=== PATIENT | male | born 1980 | race Two or more races ===

== ENCOUNTER 2021-02-02 20:18 | Emergency (ER) | payer MEDICAID ==
[2021-02-02] MEDS ORDERED: Sodium Chloride 0.9% 10 ML Syringe FLUSH PRN (20:38)
[2021-02-02] MEDS ORDERED: LORazepam 2 MG/ML SDV IVPUSH ONE ×2 (20:52→22:37)
--- NOTE | 2021-02-02 20:52 | EDM.PDOC ---
ED HPI GENERAL MEDICAL PROBLEM - General Chief Complaint: Chest Pain Stated Complaint: [facility] Time Seen by Provider: 02/02/21 20:23 Source of Information: Reports: Patient History Limitations: Reports: No Limitations - History of Present Illness INITIAL COMMENTS - FREE TEXT/NARRATIVE: 39-year-old male presents emergency department via [facility] with complaints of chest pain. Patient states he was sitting in his home watching TV when he developed stabbing pain to his left chest going into his shoulder blade. Patient states he did become diaphoretic and short of breath at that time but denied nausea. He states his left hand went numb as well. O2 saturations are 97% on room air. Of note the patient does have a history of anxiety. Patient recently moved here about a week ago from [facility]. However he states just prior to moving here he had similar chest pain and he underwent a stress test however he states that they told him this was normal and no abnormalities were seen. Patient states that he does have a history of anxiety for which he takes Latuda and trazodone. He states he does smoke half pack a day x10 years. He smokes marijuana about once a month last smoking this morning. Patient states he does drink 3 times a week a pint of alcohol however then he states that a pint only last him 3 days. Patient states he usually drinks 2 cups of coffee daily. Patient denies any other significant medical history. Onset: Today, Sudden Onset Date: 02/02/21 Left Chest Pain Score (Numeric/FACES): 8 - Related Data Allergies Allergy/AdvReac Type Severity Reaction Status Date / Time No Known Allergies Allergy Verified 02/02/21 20:22 Home Meds: Home Meds Lurasidone [Latuda] 20 mg PO DAILY 02/02/21 [History] traZODone HCl [Trazodone HCl] 300 mg PO DAILY 02/02/21 [History] Past Medical History HEENT History: Reports: Impaired Vision Other HEENT History: Wears glasses Psychiatric History: Reports: Anxiety Social & Family History - Tobacco Use Tobacco Use Status *Q: Current Every Day Tobacco User Years of Tobacco use: 20 Packs/Tins Daily: 0.5 - Alcohol Use Days Per Week of Alcohol Use: 3 Number of Drinks Per Day: 3 Total Drinks Per Week: 9 - Recreational Drug Use Recreational Drug Use: Yes Drug Use in Last 12 Months: Yes Recreational Drug Type: Reports: Marijuana/Hashish Recreational Drug Use Frequency: Monthly ED ROS GENERAL - Review of Systems Review Of Systems: See Below Constitutional: Reports: Diaphoresis. Denies: Fever, Chills HEENT: Reports: Glasses Respiratory: Reports: Shortness of Breath. Denies: Cough, Sputum Cardiovascular: Reports: Chest Pain, Lightheadedness. Denies: Palpitations, Syncope Endocrine: Reports: No Symptoms GI/Abdominal: Reports: No Symptoms : Reports: No Symptoms Musculoskeletal: Reports: No Symptoms Skin: Reports: No Symptoms Neurological: Reports: Numbness (right hand) Psychiatric: Reports: No Symptoms Hematologic/Lymphatic: Reports: No Symptoms Immunologic: Reports: No Symptoms ED EXAM, GENERAL - Physical Exam Exam: See Below Exam Limited By: No Limitations General Appearance: Alert, WD/WN, Anxious Eye Exam: Bilateral Eye: PERRL Ears: Normal External Exam, Hearing Grossly Normal Nose: Normal Inspection Throat/Mouth: Normal Inspection, Normal Lips, Normal Voice, No Airway Compromise Head: Atraumatic, Normocephalic Neck: Normal Inspection, Supple, Non-Tender, Full Range of Motion Respiratory/Chest: No Respiratory Distress, Lungs Clear, Normal Breath Sounds, No Accessory Muscle Use Cardiovascular: Normal Peripheral Pulses, No Edema, No Murmur, Tachycardia Peripheral Pulses: 2+: Radial (L), Radial (R) GI/Abdominal: Normal Bowel Sounds, Soft, Non-Tender, No Distention (Male) Exam: Deferred Rectal (Males) Exam: Deferred Back Exam: Normal Inspection, Full Range of Motion Extremities: Normal Inspection, Normal Range of Motion, Non-Tender, No Pedal Edema, Normal Capillary Refill Neurological: Alert, Oriented, Normal Cognition Psychiatric: Anxious Skin Exam: Warm, Intact, Normal Color, No Rash, Diaphoretic Lymphatic: No Adenopathy #1 Interpretation EKG Date: 02/02/21 Time: 20:28 Rhythm: NSR Rate (Beats/Min): 120 P-Wave: Present QRS: Normal ST-T: Normal QT: Normal Comparison: NA - No Prior EKG EKG Interpretation Comments: Per Dr. Moulton interpretation: sinus tachycardia; LESVIA; no AVB; no ischemic changes; late transition; no LAD/RAD; no LVH/RVH; no IVCDs; QTc wnl #2 Interpretation EKG Date: 02/03/21 Time: 08:58 Rhythm: NSR Rate (Beats/Min): 105 P-Wave: Present QRS: Normal ST-T: Normal QT: Normal EKG Interpretation Comments: Per Dr. Alvarado interpretation: Sinus tach rate 105; very mild ST elevation in V2 and V3; probable normal early repolarization. Course - Vital Signs Text/Narrative:: 39-year-old male with a history of chest pain that started just prior to arrival. Patient states he was sitting and watching TV when he developed stabbing pain to his left chest that radiated through his left shoulder blade. Patient states that he developed shortness of breath and diaphoresis on the onset of this pain however denies any nausea or vomiting. Denies any recent fever, chills, or cough. States he had right hand numbness at the onset of the chest pain as well and his right thumb is still numb. States recently had a stress test in [facility] due to similar chest pain that he had experienced and was told that this was unremarkable and there were no abnormalities seen. I have ordered a full cardiac work-up, chest x-ray and an EKG on this patient. Last Recorded V/S: Last Vital Signs Temp 97.9 F 02/03/21 08:12 Pulse 124 H 02/03/21 08:12 Resp 18 02/03/21 08:12 BP 166/105 H 02/03/21 08:12 Pulse Ox 98 02/03/21 08:12 - Orders/Labs/Meds Orders: Active Orders 24 hr Category Date Time Status EKG 12 Lead [EKG Documentation Completion] [RC] STAT Care 02/02/21 20:25 Active EKG 12 Lead [EKG Documentation Completion] [RC] STAT Care 02/03/21 08:53 Active Consult to Case Management/Tugboat Captain [CONS] Cons 02/03/21 07:53 Active Routine Sodium Chloride 0.9% [Saline Flush] Med 02/02/21 20:38 Active 10 ml FLUSH ASDIRECTED PRN Saline Lock Insert [OM.PC] Stat Oth 02/02/21 20:38 Ordered Suicide Precautions [OM.PC] Q1H Oth 02/03/21 07:00 Ordered Suicide Precautions [OM.PC] Q1H Oth 02/03/21 08:00 Ordered Suicide Precautions [OM.PC] Q1H Oth 02/03/21 09:00 Ordered Suicide Precautions [OM.PC] Q1H Oth 02/03/21 10:00 Ordered Suicide Precautions [OM.PC] Q1H Oth 02/03/21 11:00 Ordered Suicide Precautions [OM.PC] Q1H Oth 02/03/21 12:00 Ordered Suicide Precautions [OM.PC] Q1H Oth 02/03/21 13:00 Ordered Suicide Precautions [OM.PC] Q1H Oth 02/03/21 14:00 Ordered Suicide Precautions [OM.PC] Q1H Oth 02/03/21 15:00 Ordered Suicide Precautions [OM.PC] Q1H Oth 02/03/21 16:00 Ordered Suicide Precautions [OM.PC] Q1H Oth 02/03/21 17:00 Ordered Suicide Precautions [OM.PC] Q1H Oth 02/03/21 18:00 Ordered Suicide Precautions [OM.PC] Q1H Oth 02/03/21 19:00 Ordered Suicide Precautions [OM.PC] Q1H Oth 02/03/21 20:00 Ordered Suicide Precautions [OM.PC] Q1H Oth 02/03/21 21:00 Ordered Suicide Precautions [OM.PC] Q1H Oth 02/03/21 22:00 Ordered Suicide Precautions [OM.PC] Q1H Oth 02/03/21 23:00 Ordered Medication Orders Sodium Chloride (Saline Flush) 10 ml FLUSH ASDIRECTED PRN PRN Reason: Keep Vein Open Last Admin: 02/02/21 20:40 Dose: 10 ml Documented by: [email or web address] Labs: Laboratory Tests 02/02/21 02/02/21 02/02/21 Range/Units 20:34 20:34 20:34 WBC 7.82 (4.23-9.07) K/mm3 RBC 5.34 (4.63-6.08) M/mm3 Hgb 15.2 (13.7-17.5) gm/dl Hct 46.1 (40.1-51.0) % MCV 86.3 (79.0-92.2) fl MCH 28.5 (25.7-32.2) pg MCHC 33.0 (32.2-35.5) g/dl RDW Std Deviation 47.6 H (35.1-43.9) fL Plt Count 312 (163-337) K/mm3 MPV 9.3 L (9.4-12.3) fl Neut % (Auto) 78.1 H (34.0-67.9) % Lymph % (Auto) 13.3 L (21.8-53.1) % [place] % (Auto) 8.4 (5.3-12.2) % Eos % (Auto) 0 L (0.8-7.0) Baso % (Auto) 0.1 (0.1-1.2) % Neut # (Auto) 6.10 H (1.78-5.38) K/mm3 Lymph # (Auto) 1.04 L (1.32-3.57) K/mm3 [place] # (Auto) 0.66 (0.30-0.82) K/mm3 Eos # (Auto) 0.00 L (0.04-0.54) K/mm3 Baso # (Auto) 0.01 (0.01-0.08) K/mm3 Sodium 141 (136-145) mEq/L Potassium 4.1 (3.5-5.1) mEq/L Chloride 102 (98-107) mEq/L Carbon Dioxide 24 (21-32) mEq/L Anion Gap 19.1 H (5-15) BUN 18 (7-18) mg/dL Creatinine 1.5 H (0.7-1.3) mg/dL Est Cr Clr Drug Dosing 73.24 mL/min Estimated GFR (MDRD) 52 (>60) mL/min BUN/Creatinine Ratio 12.0 L (14-18) Glucose 90 (74-106) mg/dL Calcium 9.3 (8.5-10.1) mg/dL Magnesium 2.0 (1.8-2.4) mg/dl Total Bilirubin 0.5 (0.2-1.0) mg/dL AST 42 H (15-37) U/L ALT 49 (16-63) U/L Alkaline Phosphatase 87 (46-116) U/L Creatine Kinase (39-308) U/L Troponin I 0.051 (0.00-0.056) ng/mL C-Reactive Protein 2.1 H* (<1.0) mg/dL Total Protein 8.7 H (6.4-8.2) g/dl Albumin 4.3 (3.4-5.0) g/dl Globulin 4.4 gm/dL Albumin/Globulin Ratio 1.0 (1-2) TSH 3rd Generation 0.717 (0.358-3.74) uIU/mL Salicylates (2.8-20) mg/dL Urine Opiates Screen (DSTGQG=850) Ur Buprenorphine Scrn (CUTOFF=10) Ur Oxycodone Screen (ZGY3OX=172) Urine Methadone Screen (PGV9LU=017) Ur Propoxyphene Screen (PMURYS=882) Acetaminophen 0 L (10-30) ug/mL Ur Barbiturates Screen (MCGKXH=157) Ur Tricyclics Screen (IHBFRN=698) Ur Phencyclidine Scrn (CUTOFF=25) Ur Amphetamine Screen (QYBBAN=506) U Methamphetamines Scrn (YPHYKG=371) U Benzodiazepines Scrn (VALGMN=204) U Cocaine Metab Screen (XCKXRI=388) U Marijuana (THC) Screen (CUTOFF=50) Ethyl Alcohol 0.08 (0.00) gm% SARS-CoV-2 RNA (SEEMA) (NEGATIVE) 02/02/21 02/02/21 02/02/21 Range/Units 20:34 20:34 22:03 WBC (4.23-9.07) K/mm3 RBC (4.63-6.08) M/mm3 Hgb (13.7-17.5) gm/dl Hct (40.1-51.0) % MCV (79.0-92.2) fl MCH (25.7-32.2) pg MCHC (32.2-35.5) g/dl RDW Std Deviation (35.1-43.9) fL Plt Count (163-337) K/mm3 MPV (9.4-12.3) fl Neut % (Auto) (34.0-67.9) % Lymph % (Auto) (21.8-53.1) % [place] % (Auto) (5.3-12.2) % Eos % (Auto) (0.8-7.0) Baso % (Auto) (0.1-1.2) % Neut # (Auto) (1.78-5.38) K/mm3 Lymph # (Auto) (1.32-3.57) K/mm3 [place] # (Auto) (0.30-0.82) K/mm3 Eos # (Auto) (0.04-0.54) K/mm3 Baso # (Auto) (0.01-0.08) K/mm3 Sodium (136-145) mEq/L Potassium (3.5-5.1) mEq/L Chloride (98-107) mEq/L Carbon Dioxide (21-32) mEq/L Anion Gap (5-15) BUN (7-18) mg/dL Creatinine (0.7-1.3) mg/dL Est Cr Clr Drug Dosing mL/min Estimated GFR (MDRD) (>60) mL/min BUN/Creatinine Ratio (14-18) Glucose (74-106) mg/dL Calcium (8.5-10.1) mg/dL Magnesium (1.8-2.4) mg/dl Total Bilirubin (0.2-1.0) mg/dL AST (15-37) U/L ALT (16-63) U/L Alkaline Phosphatase (46-116) U/L Creatine Kinase 501 H (39-308) U/L Troponin I (0.00-0.056) ng/mL C-Reactive Protein (<1.0) mg/dL Total Protein (6.4-8.2) g/dl Albumin (3.4-5.0) g/dl Globulin gm/dL Albumin/Globulin Ratio (1-2) TSH 3rd Generation (0.358-3.74) uIU/mL Salicylates 1.2 L (2.8-20) mg/dL Urine Opiates Screen Negative (ZAZRLU=605) Ur Buprenorphine Scrn Negative (CUTOFF=10) Ur Oxycodone Screen Negative (HHU2VH=811) Urine Methadone Screen Negative (UJB0WY=666) Ur Propoxyphene Screen Negative (OSBMGZ=914) Acetaminophen (10-30) ug/mL Ur Barbiturates Screen Negative (KUXXYV=373) Ur Tricyclics Screen Negative (ECZNLN=300) Ur Phencyclidine Scrn Negative (CUTOFF=25) Ur Amphetamine Screen Presumptive positive H (GKEUXZ=118) U Methamphetamines Scrn Presumptive positive H (PCWBAL=011) U Benzodiazepines Scrn Negative (MAXKJO=589) U Cocaine Metab Screen Negative (ODTLDD=727) U Marijuana (THC) Screen Presumptive positive H (CUTOFF=50) Ethyl Alcohol (0.00) gm% SARS-CoV-2 RNA (SEEMA) (NEGATIVE) 02/03/21 02/03/21 Range/Units 08:15 08:30 WBC (4.23-9.07) K/mm3 RBC (4.63-6.08) M/mm3 Hgb (13.7-17.5) gm/dl Hct (40.1-51.0) % MCV (79.0-92.2) fl MCH (25.7-32.2) pg MCHC (32.2-35.5) g/dl RDW Std Deviation (35.1-43.9) fL Plt Count (163-337) K/mm3 MPV (9.4-12.3) fl Neut % (Auto) (34.0-67.9) % Lymph % (Auto) (21.8-53.1) % [place] % (Auto) (5.3-12.2) % Eos % (Auto) (0.8-7.0) Baso % (Auto) (0.1-1.2) % Neut # (Auto) (1.78-5.38) K/mm3 Lymph # (Auto) (1.32-3.57) K/mm3 [place] # (Auto) (0.30-0.82) K/mm3 Eos # (Auto) (0.04-0.54) K/mm3 Baso # (Auto) (0.01-0.08) K/mm3 Sodium (136-145) mEq/L Potassium (3.5-5.1) mEq/L Chloride (98-107) mEq/L Carbon Dioxide (21-32) mEq/L Anion Gap (5-15) BUN (7-18) mg/dL Creatinine (0.7-1.3) mg/dL Est Cr Clr Drug Dosing mL/min Estimated GFR (MDRD) (>60) mL/min BUN/Creatinine Ratio (14-18) Glucose (74-106) mg/dL Calcium (8.5-10.1) mg/dL Magnesium (1.8-2.4) mg/dl Total Bilirubin (0.2-1.0) mg/dL AST (15-37) U/L ALT (16-63) U/L Alkaline Phosphatase (46-116) U/L Creatine Kinase (39-308) U/L Troponin I 0.062 H* (0.00-0.056) ng/mL C-Reactive Protein (<1.0) mg/dL Total Protein (6.4-8.2) g/dl Albumin (3.4-5.0) g/dl Globulin gm/dL Albumin/Globulin Ratio (1-2) TSH 3rd Generation (0.358-3.74) uIU/mL Salicylates (2.8-20) mg/dL Urine Opiates Screen (MJQOVP=532) Ur Buprenorphine Scrn (CUTOFF=10) Ur Oxycodone Screen (IAS2LG=359) Urine Methadone Screen (YNB5IM=246) Ur Propoxyphene Screen (GZADBV=340) Acetaminophen (10-30) ug/mL Ur Barbiturates Screen (AZWMUV=784) Ur Tricyclics Screen (NNITBD=889) Ur Phencyclidine Scrn (CUTOFF=25) Ur Amphetamine Screen (HHSVHI=421) U Methamphetamines Scrn (FCRACO=207) U Benzodiazepines Scrn (HXJDQV=688) U Cocaine Metab Screen (EQPBQT=814) U Marijuana (THC) Screen (CUTOFF=50) Ethyl Alcohol (0.00) gm% SARS-CoV-2 RNA (SEEMA) Negative (NEGATIVE) Meds: Medications Generic Name Dose Route Start Last Admin Trade Name Freq PRN Reason Stop Dose Admin Sodium Chloride 10 ml 02/02/21 20:38 02/02/21 20:40 Saline Flush FLUSH 10 ml ASDIRECTED PRN Administration Keep Vein Open Discontinued Medications Generic Name Dose Route Start Last Admin Trade Name Freq PRN Reason Stop Dose Admin Lorazepam 0.5 mg 02/02/21 20:52 02/02/21 20:57 Ativan IVPUSH 02/02/21 20:53 0.5 mg ONETIME ONE Administration Lorazepam 1 mg 02/02/21 22:37 02/02/21 22:49 Ativan IVPUSH 02/02/21 22:38 1 mg ONETIME ONE Administration Ondansetron HCl 4 mg 02/03/21 01:29 02/03/21 01:33 Zofran Odt PO 02/03/21 01:30 4 mg ONETIME ONE Administration - Re-Assessments/Exams Free Text/Narrative Re-Assessment/Exam: 02/02/21 21:01 Patient is tachycardic in the 130s to 140s however he is pacing in the room as he states he feels very claustrophobic. I have ordered for the patient to receive a dose of Ativan. 02/02/21 21:21 Nothing acute is appreciated on portable view of the chest. 02/02/21 21:54 Patient has remained tachycardic in the 130s and 140s, and he is quite anxious and diaphoretic. Patient states he cannot sit still in the room despite receiving a dose of Ativan. The patient does admit now to taking an X pill prior to arrival. He states that he does not know what is in it and he just took it to get high. He has symptoms similar to ecstasy intake. He is tachycardic, hypertensive and diaphoretic. 02/02/21 21:59 I have ordered acetaminophen and salicylate levels, and a ck. 02/02/21 22:08 CBC is essentially unremarkable, chemistry reveals a sodium of 141, potassium 4.1, anion gap 19.1, BUN 18, creatinine 1.5, glucose is 90, magnesium 2.0, AST 42, ALT 49, troponin 0 0.051, C-reactive protein 2.1, TSH 0.717 awaiting results of additional labs 02/02/21 22:31 Toxicology reveals acetaminophen 0, urine amphetamine screen presumptive positive, urine methamphetamine screen presumptive positive, urine marijuana screen presumptive positive, ethyl alcohol 0.08. 03 22:42 Pt is less tachycardic. Rate 120's to 130's. BP 180/101. Will order another dose of Ativan IV. Pt reports to me that he is hallucinating and seeing people that aren't there. He states that he is schitzophrenic. 02/02/21 22:45 Salicylate level is 1.2. Creatinine kinase is 501 02/02/21 23:31 Pt will likely need to be monitored throughout the night, however there are no hospital beds available. Pt will remain in the ED for the remainder of the evening. I will hand over care to Dr. Moulton. 02/03/21 09:08 I have returned on shift and will take over care of the patient. It is revealed that the patient is having auditory and visual hallucinations. He is also stating that he is suicidal. We have called our hospital social service technician to assist with finding placement for the patient. Repeat troponin is 0.62, however after discussing this case with Dr. Alvarado, we do not feel this is a true cardiac event. It is likely due to sustained tachycardia and hypertension as a result of drug ingestion. 02/03/21 09:[address] Wong regarding transferring this patient to inpatient psych. She states that per his records she was able to discover he is actually a [place] resident so it is unlikely that we can commit this patient. She states that he has had almost identical complaints in the past. She request that we have him screened by the human services [place] and then call her back so that she can reevaluate. I spoke to our hospital social service technician, Kesha, and she is going to arrange for [facility] to come up and evaluate the patient. 02/03/21 11:39 [facility] was here to assess the patient. They have contacted [facility] in [place] and [facility] has agreed to accept the patient in transfer. We will arrange for transportation for this patient. Departure - Departure Time of Disposition: 12:00 Disposition: DC/Tfer to Psych Hosp/Unit 65 Reason for Transfer *Q: Other Condition: Good Clinical Impression: Suicide ideation Referrals: PCP,None [Primary Care Provider] - Forms: ED Department Discharge Sepsis Event Note (ED) - Evaluation Sepsis Screening Result: No Definite Risk - Focused Exam Vital Signs: Vital Signs Temp Pulse Resp BP Pulse Ox 02/03/21 08:12 97.9 F 124 H 18 166/105 H 98 - My Orders Last 24 Hours: My Active Orders 02/02/21 20:25 EKG 12 Lead [EKG Documentation Completion] [RC] STAT 02/02/21 20:38 Sodium Chloride 0.9% [Saline Flush] 10 ml FLUSH ASDIRECTED PRN Saline Lock Insert [OM.PC] Stat 02/03/21 07:00 Suicide Precautions [OM.PC] Q1H 02/03/21 07:53 Consult to Case Management/Tugboat Captain [CONS] Routine 02/03/21 08:00 Suicide Precautions [OM.PC] Q1H 02/03/21 09:00 Suicide Precautions [OM.PC] Q1H 02/03/21 10:00 Suicide Precautions [OM.PC] Q1H 02/03/21 11:00 Suicide Precautions [OM.PC] Q1 02/03/21 12:00 Suicide Precautions [OM.PC] Q1 02/03/21 13:00 Suicide Precautions [OM.PC] Q1 02/03/21 14:00 Suicide Precautions [OM.PC] Q1 02/03/21 15:00 Suicide Precautions [OM.PC] Q1 02/03/21 16:00 Suicide Precautions [OM.PC] Q1 02/03/21 17:00 Suicide Precautions [OM.PC] Q1 02/03/21 18:00 Suicide Precautions [OM.PC] Q1 02/03/21 19:00 Suicide Precautions [OM.PC] Q1 02/03/21 20:00 Suicide Precautions [OM.PC] Q1 02/03/21 21:00 Suicide Precautions [OM.PC] Q1 02/03/21 22:00 Suicide Precautions [OM.PC] Q1 02/03/21 23:00 Suicide Precautions [OM.PC] Q1 - Assessment/Plan Last 24 Hours: My Active Orders 02/02/21 20:25 EKG 12 Lead [EKG Documentation Completion] [RC] STAT 02/02/21 20:38 Sodium Chloride 0.9% [Saline Flush] 10 ml FLUSH ASDIRECTED PRN Saline Lock Insert [OM.PC] Stat 02/03/21 07:00 Suicide Precautions [OM.PC] Q1 02/03/21 07:53 Consult to Case Management/Tugboat Captain [CONS] Routine 02/03/21 08:00 Suicide Precautions [OM.PC] Q1 02/03/21 09:00 Suicide Precautions [OM.PC] [facility] 02/03/21 10:00 Suicide Precautions [OM.PC] [facility] 02/03/21 11:00 Suicide Precautions [OM.PC] Q1 02/03/21 12:00 Suicide Precautions [OM.PC] Q1 02/03/21 13:00 Suicide Precautions [OM.PC] Q1 02/03/21 14:00 Suicide Precautions [OM.PC] Q1 02/03/21 15:00 Suicide Precautions [OM.PC] Q1 02/03/21 16:00 Suicide Precautions [OM.PC] Q1 02/03/21 17:00 Suicide Precautions [OM.PC] Q1 02/03/21 18:00 Suicide Precautions [OM.PC] Q1 02/03/21 19:00 Suicide Precautions [OM.PC] Q1 02/03/21 20:00 Suicide Precautions [OM.PC] Q1H 02/03/21 21:00 Suicide Precautions [OM.PC] Q1H 02/03/21 22:00 Suicide Precautions [OM.PC] Q1H 02/03/21 23:00 Suicide Precautions [OM.PC] Q1H
[2021-02-03] MEDS ORDERED: Ondansetron 4 MG Tab.DIS PO ONE (01:29)
[2021-02-03] MEDS ORDERED: Nicotine Polacrilex 2 MG Gum ONE (04:19)
[2021-02-03] MEDS ORDERED: Nicotine Polacrilex 2 MG Gum CHEW ONE (04:30)
--- NOTE | 2021-02-03 07:02 | CR ---
Chest: Portable view of the chest was obtained. Comparison: No previous chest imaging is available. Heart size and mediastinum are within normal limits for portable technique. Lungs are clear with no acute parenchymal change. Bony structures are grossly intact. Impression: 1. Nothing acute is seen on portable chest x-ray. Diagnostic code #1
[2021-02-03] MEDS ORDERED: OLANZapine 5 MG Tab PO ONE (07:55)
[2021-02-03] MEDS ORDERED: Lithium Carbonate 300 MG Cap PO ONE (07:59)
== END 2021-02-03 12:15 ==
LOC: EDBD → JD.ED 20:18
DX: R45.851 Suicidal ideations (principal); F17.200 Nicotine dependence, unspecified, uncomplicated; Z20.822 Contact with and (suspected) exposure to COVID-19; Z79.899 Other long term (current) drug therapy
CPT/HCPCS: 36415; 71045; 80053; 80143; 80179; 80306; 80307; 82550; 83735; 84443; 84484; 85025; 86140; 87635; 93005; 96374; 96376; 99285; A9270; J2060; 93010; U0002

== ENCOUNTER 2021-02-04 23:22 | Emergency (ER) | payer MEDICAID ==
--- NOTE | 2021-02-05 01:50 | EDM.PDOCBH ---
ED HPI GENERAL MEDICAL PROBLEM - General Chief Complaint: Behavioral/Psych Stated Complaint: HARMFUL THOUGHTS Time Seen by Provider: 02/05/21 01:18 Source of Information: Reports: Patient, Other (Can at [facility]) History Limitations: Reports: No Limitations - History of Present Illness INITIAL COMMENTS - FREE TEXT/NARRATIVE: Mr. Quintero is a very pleasant 39-year-old gentleman who now presents the ED stating that he has been feeling depressed and suicidal for about a week, that he would like to be psychiatrically hospitalized. Review of prior medical records finds that the patient was seen in this ED this past 02/02/2021, with a complaint at that time of left-sided chest pain radiating through to his left scapula, associated with left hand numbness, diaphoresis, and dyspnea. He reported that he had smoked some marijuana that morning and drunk a pint of alcohol that day. He was found to be mildly hypertensive at 166/105, and tachycardic at 124 bpm. He was afebrile, saturating 98% on room air. He later admitted to taking ecstasy prior to coming to the ED. Work-up included a CBC, CMP, magnesium level, TSH, CRP, CPK, troponin, a salicylate level, an acetaminophen level, an EtOH level, a urine drug screen, a swab for the SARS-CoV-2 virus, a chest x-ray, and an ECG. His CBC, CMP, level, TSH, salicylate level, acetaminophen level, swab for the SARS-CoV-2 virus, chest x-ray, and ECG, were all unremarkable/within normal limits, while his CRP returned mildly elevated at 2.1, his CPK elevated at 501, his troponin slightly elevated at 0.062, his alcohol level elevated at 0.08, and his urine drug screen positive for amphetamine/methamphetamine, and marijuana. The patient was given diazepam, he calmed down, but then reported that he was hallucinating, seeing people that were not there, and stated that he was schizophrenic. The patient was monitored overnight in the ED without incident, but when it came close to time to discharge him, he reported that he was experiencing both auditory and visual hallucinations, and that he was suicidal. His case was discussed with a Psychiatrist at [facility], who was able to determine that the patient was from [place], and that he had had almost identical complaints in the past. She requested screening by [facility], who recommended psychiatric admission, which was done. I contacted Can at [facility]. He reported that the patient was admitted on the afternoon of 02/03/2021, and discharged the early afternoon of 02/04/2021. He states that the patient was evaluated by a Psychiatrist, who found that he had linear, organized thoughts. The patient reported that he had been traveling from [facility] to [facility], and was now in [place] in order to mo ck the [facility]. He reported that he was homeless, but that he hoped to get back to [place], where his mother lives. He stated that while he experiences situational depression from time to time, he has not actually felt suicidal for more than a month. He reported that he had attempted suicide only once previously, a few years ago, for which he was psychiatrically hospitalized. He had also been admitted for alcohol treatment. He stated that he had previously been diagnosed with schizophrenia, but denied actually experiencing any psychotic symptoms. He reported that he occasionally experienced manic symptoms, but none recently. He stated that he drank 1 pint of vodka 3 times a week, and that he smokes marijuana regularly. He stated that he was ordinarily on lithium, trazodone, and Latuda, but that he had lost his pills. The Psychiatrist determined that inpatient treatment was not indicated, and therefore discharged him with prescriptions for lithium 300 mg Qday, Latuda 20 mg Qday, and trazodone 150 mg, 2 tabs po QHS. The patient requested funding for a return trip to [place], which was not provided, however, he was provided transportation back here so that he could collect his belongings. Here in the ED tonight, the patient's initial BP is found to be mildly elevated at 155/107, with tachycardia of 120 bpm. He is afebrile, saturating 95% on room air. When I explained to the patient that, given the above, we would not be able to psychiatrically admit him, he asked if we could fund lodging for him. The patient acknowledged that he drank 1 pint of vodka earlier today. The patient denies having a recent fever, chills, sore throat, ear pain, nasal or sinus congestion, cough, dyspnea, chest pain, palpitations, nausea, vomiting, constipation, diarrhea, abdominal pain, urinary symptoms, recent weight gain or weight loss, recent bloody bowel movements or black bowel movements, recent joint aches, headaches, or rashes. The patient does not have a PCP. He states that he already received an influenza vaccine this season. - Related Data Allergies Allergy/AdvReac Type Severity Reaction Status Date / Time No Known Allergies Allergy Verified 02/02/21 20:22 Home Meds: Home Meds Lurasidone [Latuda] 20 mg PO DAILY 02/02/21 [History] traZODone HCl [Trazodone HCl] 300 mg PO DAILY 02/02/21 [History] Past Medical History HEENT History: Reports: Impaired Vision (wears glasses) Cardiovascular History: Reports: Hypertension Psychiatric History: Reports: Anxiety, Bipolar, Depression, Other (See Below) (Schizophrenia) - Past Surgical History HEENT Surgical History: Reports: Oral Surgery (dental extractions) Social & Family History - Tobacco Use Tobacco Use Status *Q: Current Every Day Tobacco User Years of Tobacco use: 23 Packs/Tins Daily: 0.5 Tobacco Use Comment: Since 16 yrs old - Alcohol Use Alcohol Use History: Yes Alcohol Use Frequency: Binges (1 pint of vodka every 3 days) - Recreational Drug Use Recreational Drug Use: Yes Drug Use in Last 12 Months: Yes Recreational Drug Type: Reports: Ecstasy, Marijuana/Hashish (smokes regularly), Methamphetamine - Living Situation & Occupation Living situation: Reports: Single, Other (Homeless) Occupation: Unemployed ED ROS GENERAL - Review of Systems Review Of Systems: Comprehensive ROS is negative, except as noted in HPI. ED EXAM, BEHAVIORAL HEALTH - Physical Exam Exam: See Below Exam Limited By: No Limitations General Appearance: Alert, WD/WN, No Apparent Distress Eye Exam: Bilateral Eye: EOMI, Normal Inspection Ears: Normal External Exam, Hearing Grossly Normal Nose: Normal Inspection Throat/Mouth: Normal Inspection, Normal Lips, Normal Voice, No Airway Compromise Head: Atraumatic, Normocephalic Neck: Normal Inspection, Full Range of Motion Respiratory/Chest: No Respiratory Distress, Lungs Clear, Normal Breath Sounds, No Accessory Muscle Use Cardiovascular: Normal Peripheral Pulses, Regular Rate, Rhythm, No Edema, No Gallop, No JVD, No Murmur, No Rub GI/Abdominal: Normal Bowel Sounds, Soft, Non-Tender, No Organomegaly, No Distention, No Abnormal Bruit, No Mass Back Exam: Normal Inspection, Full Range of Motion, NT Extremities: Normal Inspection, Normal Range of Motion, No Pedal Edema, Normal Capillary Refill Neurological: Alert, Normal Cognition, Normal Gait (walking in ED), No Motor/Sensory Deficits, Oriented x 3 Psychiatric: Normal Affect Skin Exam: Warm, Dry, Intact, Normal color, No rash COURSE, BEHAVIORAL HEALTH COMP - Course Vital Signs: Last Vital Signs Temp 37.0 C 02/05/21 00:07 Pulse 120 H 02/05/21 00:07 Resp 18 02/05/21 00:07 BP 155/107 H 02/05/21 00:07 Pulse Ox 95 02/05/21 00:07 Orders, Labs, Meds: Active Orders 24 hr Category Date Time Status Consult to Case Management/Forestry Extension Specialist [CONS] Cons 02/05/21 06:50 Active Routine Medical Clearance: 02/05/21 01:45 As above, the patient was seen in this ED on Tuesday, with a complaint of depression, suicidal ideation, and psychotic features, transferred to [facility] on Tuesday afternoon, but found to not actually be depressed, suicidal, or psychotic. He was merely homeless, looking for funds to get back to [place]. [facility] was not willing to fund that, however, they did refill his prescriptions for lithium, trazodone, and Latuda, and provided him with transportation back here so that he could collect his belongings. He has n ow returned to the ER telling me that he is depressed and suicidal, and wanting to be psychiatrically admitted. I explained that we will not be able to get him psychiatrically admitted, given the information we have from [facility]. He requested that we house him, stating that he is homeless. He tells me that he has run out of money, and no longer has the hotel room that he previously had . I have discussed the above with Judy FORBES and Mimi FORBES. We will check with the [facility] to see if he still has a room there or not. If he does, we will discharge him now. If he does not have a room, Judy is willing to keep him overnight, provided he behaves himself. 02/05/21 01:56 Notified by Mimi FORBES that she spoke with Dustin, who works at the [employer]. Dustin informed her that he had allowed the patient to stay in their lobby, but that the patient does not have a room there. That being the case, we will allow the patient to stay here in the ED overnight, provided he is cooperative. 02/05/21 06:48 The patient has not caused any difficulties overnight. He is ready for discharge, however, I would like him to be seen by Kesha from [employer] before he leaves, to see if there is anything that they can do to help him find care home or get transportation to [place]. 02/05/21 07:38 Discussed the situation with Kesha from [employer]. She stated that [facility] has been known to get bus tickets for some people. She will look into whether that is a possibility. At this time, I am going to prepare the patient's discharge paperwork. Departure - Departure Time of Disposition: 07:39 Disposition: Home, Self-Care 01 Condition: Good Clinical Impression: Homeless, Alcohol consumption binge drinking - Discharge Information *PRESCRIPTION DRUG MONITORING PROGRAM REVIEWED*: Not Applicable *COPY OF PRESCRIPTION DRUG MONITORING REPORT IN PATIENT ETHAN: Not Applicable Instructions: Alcohol Use Disorder Referrals: PCP,None [Primary Care Provider] - Forms: ED Department Discharge Additional Instructions: You were seen in the emergency room seeking care home and possible transportation back to [place], in the setting of being homeless. school services officer is going to contact [facility], to see if they can arrange for transportation. If any other problems, please do not hesitate to return to the ER. Sepsis Event Note (ED) - Evaluation Sepsis Screening Result: No Definite Risk - Focused Exam Vital Signs: Vital Signs Temp Pulse Resp BP Pulse Ox 02/05/21 00:07 37.0 C 120 H 18 155/107 H 95 - My Orders Last 24 Hours: My Active Orders 02/05/21 06:50 Consult to Case Management/Forestry Extension Specialist [CONS] Routine - Assessment/Plan Last 24 Hours: My Active Orders 02/05/21 06:50 Consult to Case Management/Forestry Extension Specialist [CONS] Routine
== END 2021-02-05 08:30 | disposition home or self-care (01) ==
LOC: EDBD → JD.ED 23:22
DX: F10.10 Alcohol abuse, uncomplicated (principal); I10 Essential (primary) hypertension; Z79.899 Other long term (current) drug therapy; Z72.0 Tobacco use; Z59.0 Homelessness
CPT/HCPCS: 99283

== ENCOUNTER 2021-02-05 12:05 | Emergency (ER) | payer MEDICAID ==
[2021-02-05] MEDS ORDERED: Metoprolol Tartrate 50 MG Tab PO ONE ×2 (13:20→15:23)
[2021-02-05] MEDS ORDERED: LORazepam 0.5 MG Tab PO ONE (13:20)
[2021-02-05] MEDS ORDERED: LORazepam 1 MG Tab PO ONE (17:05)
--- NOTE | 2021-02-05 17:29 | EDM.PDOC ---
ED HPI GENERAL MEDICAL PROBLEM - General Chief Complaint: Cardiovascular Problem Stated Complaint: HIGH BLOOD PRESSURE SENT FROM [facility] Time Seen by Provider: 02/05/21 12:29 Source of Information: Reports: Patient, RN Notes Reviewed - History of Present Illness INITIAL COMMENTS - FREE TEXT/NARRATIVE: 40 yr old male sent here from [facility] for eval. and treatment of Htn. He had presented here I believe late last evening with concern about "harming himself" He had also presented here 2 days earlier with similar stated sx. He was transferred under 24 hr old to [facility]. Was found to not be suicidal, or in need of inpatient mental health. Very quickly released back to [place] and very quickly found his way back to the ED. He is basically homeless with no place in [place] to go. He was released this morning to [facility] with the hope that they could provide him some social support. They were unhappy with his BP over 160 systolic, sent him back here for evaluation of Htn. Pt at time of exam has no headache, chest pain, difficulty breathing. He is not aware of past hx of Htn and to his knowledge has never taken meds for Htn. His drug screen 2 days ago was positive for meth/amphetamines. - Related Data Allergies Allergy/AdvReac Type Severity Reaction Status Date / Time No Known Allergies Allergy Verified 02/05/21 12:20 Home Meds: Home Meds Lurasidone [Latuda] 20 mg PO DAILY 02/02/21 [History] traZODone HCl [Trazodone HCl] 300 mg PO DAILY 02/02/21 [History] Metoprolol Tartrate [Lopressor] 50 mg PO Q12HR #30 tab 02/05/21 [Rx] Past Medical History HEENT History: Reports: Impaired Vision Other HEENT History: Wears glasses Cardiovascular History: Reports: Hypertension Psychiatric History: Reports: Anxiety, Bipolar, Depression, Other (See Below) - Past Surgical History HEENT Surgical History: Reports: Oral Surgery Social & Family History - Family History Family Medical History: No Pertinent Family History - Tobacco Use Tobacco Use Status *Q: Current Every Day Tobacco User Years of Tobacco use: 30 Packs/Tins Daily: 0.5 - Caffeine Use Caffeine Use: Reports: Coffee - Alcohol Use Days Per Week of Alcohol Use: 3 Number of Drinks Per Day: 6 Total Drinks Per Week: 18 - Recreational Drug Use Recreational Drug Use: Yes Recreational Drug Type: Reports: Ecstasy, Marijuana/Hashish - Living Situation & Occupation Living situation: Reports: Single, Other (Homeless) Occupation: Unemployed ED ROS GENERAL - Review of Systems Review Of Systems: See Below Constitutional: Denies: Fever, Chills, Weakness, Diaphoresis HEENT: Reports: No Symptoms Respiratory: Denies: Shortness of Breath Cardiovascular: Denies: Chest Pain GI/Abdominal: Denies: Abdominal Pain, Nausea, Vomiting Musculoskeletal: Denies: Neck Pain, Shoulder Pain Skin: Reports: No Symptoms Neurological: Denies: Dizziness, Headache, Numbness, Trouble Speaking, Difficulty Walking Psychiatric: Reports: Anxiety, Other (mild paranoia). Denies: Hallucinations, Suicidal Ideation ED EXAM, GENERAL - Physical Exam Exam: See Below General Appearance: Alert, No Apparent Distress Eye Exam: Bilateral Eye: PERRL Throat/Mouth: Normal Inspection Head: Atraumatic Neck: Supple Respiratory/Chest: No Respiratory Distress, Lungs Clear, Normal Breath Sounds Cardiovascular: Tachycardia GI/Abdominal: Soft, Non-Tender Extremities: Normal Inspection, Normal Range of Motion Neurological: Alert, Oriented, No Motor/Sensory Deficits Psychiatric: Anxious (mild) Skin Exam: Warm, Dry, Normal Color Course - Vital Signs Last Recorded V/S: Last Vital Signs Temp 98.1 F 02/05/21 12:17 Pulse 75 02/05/21 15:39 Resp 16 02/05/21 12:17 BP 168/113 H 02/05/21 15:39 Pulse Ox - Orders/Labs/Meds Orders: Active Orders 24 hr Category Date Time Status Peripheral IV Care [RC] . DIRECTED Care 02/05/21 18:14 Active Sodium Chloride 0.9% [Saline Flush] Med 02/05/21 18:14 Active 10 ml FLUSH ASDIRECTED PRN Peripheral IV Insertion Adult [OM.PC] Stat Oth 02/05/21 18:13 Ordered - Re-Assessments/Exams Free Text/Narrative Re-Assessment/Exam: 02/05/21 17:45. We have given 2 doses oral metropolol, ativan 0.5 and 1 mg PO. He considers to be in NAD other than he doesn't like "being in the small room". He continues to have no headache, chest or abd pain. Have ordered an IV. I am told that Maggie is requesting that we get his BP down to under 160/120. Will start working with labetalol IV and also give further ativan IV. 02/05/21 19:14. Last 2 readings have been in the 145/86 range. He continues to feel well. It is my understanding that he will be able to go to the [facility]. Discharge instr. as documented. Departure - Departure Time of Disposition: 19:15 Disposition: Home, Self-Care 01 Condition: Fair Clinical Impression: Hypertension Qualifiers: Hypertension type: essential hypertension Qualified Code(s): I10 - Essential (primary) hypertension Prescriptions: Metoprolol Tartrate [Lopressor] 50 mg PO Q12HR #30 tab Instructions: Hypertension, Adult, [id number] Referrals: PCP,None [Primary Care Provider] - Forms: ED Department Discharge Additional Instructions: Lopressor 50 mg twice daily with your next dose tomorrow morning. Follow up clinic as needed. See a medical provider for complete medical physical at your earliest opportunity. Sepsis Event Note (ED) - Evaluation Sepsis Screening Result: No Definite Risk - Focused Exam Vital Signs: Vital Signs Temp Pulse Pulse Resp BP BP 02/05/21 15:39 75 168/113 H 02/05/21 13:34 101 H 190/115 H 02/05/21 12:17 98.1 F 106 H 16 188/112 H - My Orders Last 24 Hours: My Active Orders 02/05/21 18:13 Peripheral IV Insertion Adult [OM.PC] Stat 02/05/21 18:14 Peripheral IV Care [RC] . DIRECTED Sodium Chloride 0.9% [Saline Flush] 10 ml FLUSH ASDIRECTED PRN - Assessment/Plan Last 24 Hours: My Active Orders 02/05/21 18:13 Peripheral IV Insertion Adult [OM.PC] Stat 02/05/21 18:14 Peripheral IV Care [RC] . DIRECTED Sodium Chloride 0.9% [Saline Flush] 10 ml FLUSH ASDIRECTED PRN
[2021-02-05] MEDS ORDERED: Labetalol 100 MG/20 ML MDV IVPUSH ONE (18:14)
[2021-02-05] MEDS ORDERED: Sodium Chloride 0.9% 10 ML Syringe FLUSH PRN (18:14)
[2021-02-05] MEDS ORDERED: LORazepam 2 MG/ML SDV IVPUSH ONE (18:14)
== END 2021-02-05 19:40 | disposition home or self-care (01) ==
LOC: EDBD 12:05 → JD.ED 12:05
DX: I10 Essential (primary) hypertension (principal); Z72.0 Tobacco use; Z79.899 Other long term (current) drug therapy
CPT/HCPCS: 96374; 99283; A9270; J2060; J3490